=== PATIENT | female | born 1975 | race Hispanic/Latino ===

== ENCOUNTER 2024-01-06 19:20 | Emergency (ER) | payer MEDICAID, SELFPAY ==
[2024-01-06 19:23] VITALS: BP 130/77
[2024-01-06 20:18] VITALS: BMI 30.5
--- NOTE | 2024-01-06 21:18 | ED.GENMED ---
History of Present Illness
General
Chief Complaint: Numbness
Source: patient
Time Seen by Provider: 01/06/24 20:53
History of Present Illness
History of Present Illness:
48yoF with a history of hypertension presenting for evaluation of right arm pain and numbness. Symptoms initially began 1 week ago with pain starting in the R shoulder radiating down into the arm. She was seen by her chiropractor 3 days ago who
performed a neck adjustment. X-rays of R shoulder were done at that time which were reportedly normal. She reports a gradual onset of numbness of the R arm. She also noticed that her R eyelid appeared to be drooping since last night. She has been
taking ibuprofen without relief of her pain. Her pain is now severe and her chiropractor told her to go to the ED for evaluation. She denies any symptoms in her lower extremities.
Phy Exam
General Physical Exam
General Presentation: well appearing and no apparent distress
General age: appears stated age
General Skin: warm and dry
General Habitus: normal
General Mental: alert
ENT Exam
ENT Exam: TM's normal, pharynx normal and normocephalic
Eye Exam
Eye Exam: PERRL, EOMI and conjunctiva normal
Cardiovascular Exam
Cardiovascular Exam: regular rate/rhythm and no murmur
Pulmonary Exam
Pulmonary Exam: lungs clear, no respiratory distress, no crackles and no wheezing
Neurological Exam
Neurological Exam: other (Mild difficulty with elevating R eyebrow. Nasolabial folds are symmetric. 4/5 strength in R arm 2/2 pain. 5/5 strength in all other extremities.)
Jennifer Coma Scale
Eye Opening: Spontaneous
Verbal Response: Oriented
Motor Response: Obeys Commands
GCS Total Score: 15
Musculoskeletal Exam
Musculoskeletal Exam: other (+Reproducible tenderness along the cervical portion of the R trapezius muscle)
Skin Exam
Skin Exam: normal color and warm/dry
Psychiatric Exam
Psychiatric Exam: normal mood/affect
Course
Orders/Labs/Results
Orders:
Orders
01/06/24 21:17
Electrocardiogram (*1) Urgent
Reason for Study: Vertigo / Dizzy
CT Head & Neck Angio W/wo IV Urgent
Comment:
Reason For Exam: R arm tingling/pain, R eyelid drooping
EKG- Treatment ONCE
01/06/24 21:18
HYDROmorphone [Dilaudid] 0.5 mg IV NOW STA
01/06/24 21:24
Complete Blood Count/With Diff Urgent
Comprehensive Metabolic Panel Urgent
Troponin I Urgent
01/07/24 00:09
Lidocaine [Lidocaine 4% Patch] 1 patch TOPICAL ONCE ONE
Apply Lidocaine patch(s) to:: R neck
Abnormal Lab Results
01/06/24
21:24
Absolute Monos (auto) 0.7 H 10^3/uL
(0.1-0.6)
Glucose 117 H mg/dl
(70-99)
01/06/24 21:24
01/06/24 21:24
Vital Signs
Initial and Last Documented VS:
Initial Vital Signs
Temp Pulse Resp BP Pulse Ox
98.4 F 68 18 130/77 98
01/06/24 19:23 01/06/24 19:23 01/06/24 19:23 01/06/24 19:23 01/06/24 19:23
Last Documented Vital Signs
Temp Pulse Resp BP Pulse Ox
98.4 F 62 19 126/77 98
01/06/24 19:23 01/07/24 00:00 01/07/24 00:00 01/07/24 00:00 01/06/24 23:00
MDM/Problems Addressed
Differential Diagnosis Includes:
48yoF here with R shoulder pain radiating down R arm x 1 week. Also having paresthesias to the extremity and R eyelid drooping since yesterday. S/p chiropractic adjustment. VSS. She is non-toxic appearing. There is reproducible tenderness to the
trapezius. Mild difficulty with elevation of R eyebrow. Lower face is symmetric. 4/5 strength to RUE 2/2 pain. Differential diagnosis includes but is not limited to: cervical radiculopathy, neuropathy, muscle strain, vertebral dissection, less
likely CVA/cardiac
Initial ED plan: Check cardiac labs, EKG, and CTA head/neck. IV Dilaudid for pain.
*EKG
Interpreted by ED Provider?: Yes
EKG Intrepretation Date: 01/06/24
Heart Rate: 63
Rate: normal
Rhythm: sinus
[place]: normal axis
Interval: normal interval
QRS Pattern: normal QRS
Ischemia: no ischemia
*Critical Care Note
Total Time (30-74mins, 75-104mins- exclusive of procedures): Not Applicable
Update Note
Update Note:
Labs unremarkable. EKG shows NSR without ischemic changes and troponin WNL. CTA head/neck is negative for acute findings per preliminary [facility] read. Degenerative changes of cervical spine noted. Patient's main compliant is pain and only
her upper face is affected. Overall low suspicion for acute CVA. Suspect cervical radiculopathy. No indication for hospitalization at this time. Will trial course of prednisone and Robaxin. Advised close f/u with PCP and orthopedics. ED return
precautions discussed. She expressed understanding and is agreeable to plan. She was discharged in stable condition.
ED Attending Note
-
Portions of this chart may have been created with voice recognition software.� Occasional wrong word or��sound alike� substitutions may have occurred due to the inherent limitations of voice recognition software.
Discharge Plan
Departure
Patient Disposition: Home (Routine Discharge)
Date of Disposition: 01/07/24
Time of Disposition: 00:07
Patient with high blood pressure during this ER visit?: No
Discharge Problem:
Cervical radiculopathy
Instructions: Radiculopathy (DC)
Prescriptions:
New
prednisone 50 mg tablet
50 mg PO DAILY Qty: 5 0RF
methocarbamol 750 mg tablet
750 mg PO Q8H PRN (Reason: muscle spasms) Qty: 21 0RF
No Action
amlodipine 2.5 mg Tablet
2.5 mg PO DAILY
zolpidem [Ambien] 5 mg Tablet
5 mg PO HS
escitalopram oxalate [Lexapro] 20 mg Tablet
25 mg PO DAILY
rosuvastatin 5 mg Tablet
5 mg PO DAILY
Referrals:
Alis Patricio MD [Family Provider] -
Activity Restrictions/Additional Instructions:
Take prednisone as prescribed.
Apply heat to affected area. Use lidocaine patches daily (12 hours on, 12 hours off). Take Tylenol 650mg and ibuprofen 600mg every 6 hours as needed. Take Robaxin (muscle relaxer) as needed for spasms.
Please call on Monday to schedule a follow-up with your family doctor and orthopedics.
Return to the ER with any new or worsening symptoms.
Interventions
Interventions:
*Risk Screen - Suicide Last Done: 01/06/24 19:23
*General Assessment Last Done: 01/06/24 19:23
*Neglect/Abuse Screening Last Done: 01/06/24 19:23
ED- Fall Risk Assessment Last Done: 01/07/24 00:28
*ED COVID-19 Vaccine History Last Done: 01/06/24 19:23
*Nursing Disposition Last Done: 01/07/24 00:28
ED- Neurological Assessment Last Done: 01/06/24 20:18
Discharge Date and Time
Discharge Date/Time: 01/07/24 00:37
Print Language: ZAMBIAN
[2024-01-06 21:29] LABS: % Basophils 0.6 % (0-2); % Eosinophils 4.3 % (0-6); % Immature Granulocytes 0.2 % (0-0.5); % Lymphocytes 33.6 % (20.5-51.1); % Monocytes 8.6 % (1.7-9.3); % Neutrophils 52.7 % (42.2-75.2); Absolute Basophils 0.1 10^3/uL (0-0.2); Absolute Eosinophils 0.4 10^3/uL (0-0.7); Absolute Lymphocytes 2.9 10^3/uL (1.2-3.4); Absolute Monocytes 0.7 10^3/uL (0.1-0.6); Absolute Neutrophils 4.5 10^3/uL (1.4-6.5); Hematocrit 37.2 % (37.0-47.0); Hemoglobin 12.8 g/dL (12.0-16.0); Mean Corp Hgb Conc. 34.4 g/dL (33.0-37.0); Mean Corpuscular Hgb 29.1 pg (27.0-31.0); Mean Corpuscular Volume 84.5 fL (81.0-99.0); Mean Platelet Volume 9.3 fL (7.4-10.4); Nucleated Red Blood Cells % 0 %; Platelet Count 226 10^3/uL (130-400); Red Cell Dist. Width 13.2 % (11.5-14.5); White Blood Cell Count 8.5 10^3/uL (4.8-10.8)
[2024-01-06] MEDS: DILAUDID 0.5 MG IV (21:40)
[2024-01-06 21:42] VITALS: BP 133/79
[2024-01-06 21:49] LABS: ALT (SGPT) 22 U/L (0-35); AST (SGOT) 34 U/L (14-36); Albumin 4.2 g/dl (3.5-5.0); Alkaline Phosphatase 42 U/L (38-126); Blood Urea Nitrogen 16 mg/dl (7-17); Calcium 8.9 mg/dl (8.4-10.2); Carbon Dioxide 23 mmol/L (22-30); Chloride 102 mmol/L (98-107); Estimated Creatinine Clearance > 125 ml/min; Glucose 117 mg/dl (70-99); Potassium 4.3 mmol/L (3.5-5.1); Sodium 138 mmol/L (135-145); Total Bilirubin 0.3 mg/dl (0.2-1.3); Total Protein 6.8 g/dl (6.3-8.2); eGFR > 60.00
[2024-01-06 21:53] LABS: Troponin I < 0.012 ng/ml
[2024-01-06 22:00] VITALS: BP 112/73
[2024-01-06 23:00] VITALS: BP 110/71
[2024-01-07] VITALS: BP 126/77
[2024-01-07] MEDS: LIDOCAINE 4% PATCH 1 PATCH TOPICAL (00:22)
== END 2024-01-07 00:37 | disposition home or self-care (01) ==
LOC: EMR 19:20
PROVIDERS: Physician Assistant; EMERGENCY PHYSICIAN Emergency Medicine; FAMILY PHYSICIAN Internal Medicine
DX: M54.12 Radiculopathy, cervical region (principal); I10 Essential (primary) hypertension
CPT/HCPCS: 99285; 96374; 70496; 70498; 80053; 84484; 85025; 93005; Q9967